=== PATIENT | male | born 1970 | race Caucasian/White ===

== ENCOUNTER 2019-10-13 04:13 | Emergency (ER) | payer OTHER ==
[~2019-10-13] VITALS: Ht 182.9 cm; Wt 87.1 kg
[2019-10-13] MEDS ORDERED: IV NS 0.9% 1,000 ML BAG IV ONE (04:30)
[2019-10-13] MEDS ORDERED: FAMOTIDINE/PF INJ 20 MG/2 ML VIAL IV ONE ×2 (04:30→04:36)
[2019-10-13] MEDS ORDERED: diphenhydrAMINE HCL 50 MG/ML VIAL IV ONE (04:30)
[2019-10-13] MEDS ORDERED: EPINEPHRINE (1:1000) MDV 30 MG/30ML VIAL SUBCUT ONE (04:30)
[2019-10-13] MEDS ORDERED: methylPREDNISolone SOD SUCC 125 MG/2ML VIAL IV ONE (04:30)
[2019-10-13] MEDS ORDERED: diphenhydrAMINE HCL 50 MG/ML VIAL ONE (04:35)
[2019-10-13] MEDS ORDERED: EPINEPHRINE (1:1000) 1 MG/ML AMPUL ONE (04:35)
[2019-10-13] MEDS ORDERED: methylPREDNISolone SOD SUCC 125 MG/2ML VIAL ONE (04:35)
--- NOTE | 2019-10-13 05:02 | NUR ---
PATIENT CAME TO ER FOR SWOLLEN TONGUE. PATIENT WOKE UP YESTERDAY MORNING AND NOTICED THAT HIS TONGUE WAS SWOLLING. PATIENT'S URGED THE PATIENT TO WORK. AAOX4. NO SOB. BREATHING EVENLY AND UNLABORED ON ROOM AIR.
--- NOTE | 2019-10-13 06:34 | NUR ---
IV removed. Catheter intact and site benign. Pressure and 4x4 applied to site. No bleeding noted. Patient discharged to home in stable condition. Written and verbal after care instructions given. Patient verbalizes understanding of instruction.
[2019-10-13 06:35] VITALS: BP 122/66
--- NOTE | 2019-10-13 06:35 | NUR ---
Patient is ambulatory with a steady gait.
== END 2019-10-13 06:35 | disposition home or self-care (01) ==
LOC: ER 04:18
DX: T78.3XXA Angioneurotic edema, initial encounter (principal)
CPT/HCPCS: 96372; 96374; 96375; 99284; J0171 ×2; J1200; J2930; J3490; J7030